=== PATIENT | male | born 2000 | race Caucasian/White ===

== ENCOUNTER 2023-10-26 04:04 | Emergency (ER) | payer BC ==
[~2023-10-26] VITALS: Ht 180.3 cm; Wt 77.1 kg
[2023-10-26 04:07] VITALS: BP_SYST 120; PULSE 85; RESP 16; TEMP 99.6; O2SAT 98
[2023-10-26] MEDS: DIPHENHYDRAMINE INJ 50 MG/ML VIAL IVP ONE (04:33)
[2023-10-26] MEDS: methylPREDNISolone SOD SUCC/PF 62.5 MG/ML VIAL IVP ONE (04:34)
[2023-10-26] MEDS: EPINEPHRINE HCL/PF 1 MG/ML AMP SUBCUT ONE (04:49)
[2023-10-26] MEDS ORDERED: MONT-40 PO (05:49)
[2023-10-26 06:17] VITALS: BP_SYST 122; PULSE 71; RESP 16; TEMP 99.6; O2SAT 98
== END 2023-10-26 06:05 | disposition home or self-care (01) ==
LOC: SED 04:04
DX: L50.9 Urticaria, unspecified (principal); Z79.899 Other long term (current) drug therapy
CPT/HCPCS: 99284; 96374; 96375; 96372; J1200; J0171; J2930